=== PATIENT | female | born 1970 | race Caucasian/White ===

== ENCOUNTER 2025-03-16 13:21 | Day surgery (SDC) | payer BC ==
[~2025-03-16] VITALS: Ht 162.6 cm; Wt 110.1 kg
[~2025-03-16 13:21] MED LIST: APLENZIN PO; CHOL125C6 PO; CITA20TA6 PO; CROM100C PO; FAMO40TA3 PO; FEXO-63 PO; L-ME7.5T8 PO; LIOT5TAB6 PO; LISD40CA PO; MONT10TA97 PO; NORE5TAB PO; PANT40TA29 PO; SYNT50TA PO
[2025-03-16] MEDS ORDERED: LIDOCAINE 2% 100 MG/5 ML SDV (FOR ANES.) As Ordered ONE (15:30)
[2025-03-16 15:47] VITALS: TEMP 98.8
[2025-03-16 16:05] VITALS: BP 130/78; O2SAT 100
== END 2025-03-16 16:17 | disposition home or self-care (01) ==
LOC: M OPP 13:21
PROVIDERS: ATTEND Internal Medicine Gastroenterology
DX: K22.89 Other specified disease of esophagus (principal); K44.9 Diaphragmatic hernia without obstruction or gangrene; R13.10 Dysphagia, unspecified; R12 Heartburn; G47.30 Sleep apnea, unspecified; Z91.041 Radiographic dye allergy status; Z79.899 Other long term (current) drug therapy